=== PATIENT | female | born 1975 | race Caucasian/White ===

== ENCOUNTER 2016-10-29 07:09 | Day surgery (SDC) | payer MEDICAID ==
[~2016-10-29] VITALS: Ht 144.8 cm; Wt 43.5 kg
[2016-10-29] MEDS ORDERED: LIDOCAINE HCL/PF 2% 5 ML VIAL IM ONE (07:10)
[2016-10-29] MEDS ORDERED: PROPOFOL 1% 20 ML VIAL IVP ONE (07:10)
[2016-10-29] MEDS ORDERED: SODIUM CHLORIDE 0.9% 1,000 ML IV ONE ×2 (07:15→08:30)
[2016-10-29] MEDS ORDERED: FERR-89 PO (07:54)
[2016-10-29] MEDS ORDERED: MESA1S PR (07:54)
[2016-10-29] MEDS ORDERED: PRED20 PO (07:54)
[2016-10-29] MEDS ORDERED: HYDROCORTISONE SOD SUCC 100 MG/2 ML VIAL ONE (08:10)
[2016-10-29] MEDS ORDERED: SODIUM CHLORIDE 0.9% 100 ML ONE (08:11)
[2016-10-29] MEDS ORDERED: MEPERIDINE-PF 25 MG/ML SYRINGE IVP PRN (09:15)
[2016-10-29] MEDS ORDERED: HYDROmorphone 2 MG/ML SYRINGE IVP PRN (09:15)
[2016-10-29] MEDS ORDERED: FentaNYL CITRATE-PF 100 MCG/2 ML VIAL IVP PRN (09:15)
[2016-10-29] MEDS ORDERED: SODIUM CHLORIDE 0.9% 0 ML IV ONE (09:32)
== END 2016-10-29 10:30 | disposition home or self-care (01) ==
LOC: SURGERY 07:09
PROVIDERS: ATTEND Internal Medicine Gastroenterology
DX: K51.90 Ulcerative colitis, unspecified, without complications (principal); D64.9 Anemia, unspecified; Z79.899 Other long term (current) drug therapy; Z98.890 Other specified postprocedural states
CPT/HCPCS: 36415; 43239; 84703; 88305; 88342; J1720; J2704; J3490; J7030; J7050; 88341